=== PATIENT | female | born 1975 | race Caucasian/White ===

== ENCOUNTER → 2019-10-31 | Outpatient (CLI) | payer BC ==
--- NOTE | 2019-11-07 09:19 | Diagnostic Imaging Report ---
INDICATION: Screening. TECHNIQUE: The current study was also evaluated with a Computer Aided Detection (CAD) system. 3D Tomographic imaging was also performed. COMPARISON: 04/13/2018 and 04/07/2017. FINDINGS: There are scattered fibroglandular densities bilaterally. There are a few benign type calcifications. There is no dominant mass, spiculated lesion, or suspicious calcification identified. The skin, nipples, and axillae are unremarkable. IMPRESSION: Benign findings. ACR BI-RADS Category 2: Benign findings. Result letter will be mailed to the patient. Note: At least 10% of breast cancer is not imaged by mammography. Dictated by: Dictated on workstation # [id number]
== END ==
LOC: RAD 07:33
PROVIDERS: ATTEND Nurse Practitioner Family
DX: Z12.31 Encounter for screening mammogram for malignant neoplasm of breast (principal)
CPT/HCPCS: 77067

== ENCOUNTER → 2021-02-03 | Outpatient (CLI) | payer BC ==
--- NOTE | 2021-02-03 08:34 | Diagnostic Imaging Report ---
Indication: Routine screening. Comparison is made prior mammogram 10/31/2019 and 04/13/2018. 2-D and 3-D bilateral screening mammography was performed with CAD. Both breasts are heterogeneously dense, limiting the sensitivity of mammography. Parenchymal pattern is stable. No mass or malignant appearing microcalcifications are seen. Axillae are unremarkable. IMPRESSION: BI-RADS Category 1 No mammographic features suspicious for malignancy are identified. ACR BI-RADS Category 1: Negative. Result letter will be mailed to the patient. Note: At least 10% of breast cancer is not imaged by mammography. Dictated by: Dictated on workstation # [id number]
== END ==
LOC: RAD 07:45
PROVIDERS: ATTEND Nurse Practitioner Family
DX: Z12.31 Encounter for screening mammogram for malignant neoplasm of breast (principal)
CPT/HCPCS: 77063; 77067

== ENCOUNTER → 2022-02-11 | Outpatient (CLI) | payer BC ==
--- NOTE | 2022-02-11 13:03 | Diagnostic Imaging Report ---
INDICATION: Routine screening. COMPARISON: 02/03/2021 and 10/31/2019. TECHNIQUE: 2D and 3D bilateral screening mammography was performed with CAD. FINDINGS: Both breasts are heterogeneously dense, limiting the sensitivity of mammography. The overall parenchymal pattern is stable. No mass or malignant-appearing microcalcifications are seen. The axillae are unremarkable. IMPRESSION: No mammographic features suspicious for malignancy are identified. ACR BI-RADS Category 1: Negative. Result letter will be mailed to the patient. Note: At least 10% of breast cancer is not imaged by mammography. Dictated by: Dictated on workstation # [id number]
== END ==
LOC: RAD 07:20
PROVIDERS: ATTEND Nurse Practitioner Family
DX: Z12.31 Encounter for screening mammogram for malignant neoplasm of breast (principal)
CPT/HCPCS: 77063; 77067

== ENCOUNTER 2022-03-18 07:43 | Emergency (ER) | payer BC ==
[~2022-03-18] VITALS: Ht 177.8 cm; Wt 113.4 kg
--- NOTE | 2022-03-18 08:05 | ED Chest Pain ---
General Stated Complaint: RAPID HR Source: patient Exam Limitations: no limitations History of Present Illness Date Seen by Provider: Mar 18, 2022 Time Seen by Provider: 07:47 Initial Comments The patient and her present to the ER by private conveyance with chief complaint she was awoken this morning about 0430 with pressure and heaviness under her left breast nonradiating causing her to profusely sweat and feel short of breath. She laid down and after about a half an hour it passed. She says her blood pressure was normal 120/80 and her heart rate was 84. She is not a smoker but she does have hypertension, hyperlipidemia on atorvastatin, obesity and has never been tested for obstructive sleep apnea. The pressure lasted a bout 30 minutes and then went away. She says she felt like her heart was racing. No history of SVT, atrial fibrillation or dysrhythmia. No familial history of early onset coronary disease or stroke. She does not have diabetes. Allergies and Home Medications Allergies Coded Allergies: No Known Drug Allergies (Unverified , 03/18/22) Patient Home Medication List Home Medication List Reviewed: Yes Review of Systems Review of Systems Constitutional: No chills EENTM: No Blurred Vision, No Double Vision Respiratory: Denies Cough, Denies Shortness of Air Cardiovascular: See HPI; Denies Chest Pain, Denies Palpitations, Denies Syncope Gastrointestinal: Denies Abdominal Pain, Denies Constipated, Denies Diarrhea; Nausea (Earlier); Denies Vomiting Genitourinary: Denies Burning, Denies Discharge Skin: No pruritus Psychiatric/Neurological: Denies Anxiety, Denies Depressed All Other Systems Reviewed Negative Unless Noted: Yes Past Tlmnmyd-Yemrzk-Dbpeic Hx Patient Social History Tobacco Use?: No Use of E-Cig and/or Vaping dev: No Substance use?: No Alcohol Use?: No Physical Exam Vital Signs Vital Signs - First Documented 03/18/22 07:50 Temp 37.1 Pulse 88 Resp 18 B/P (MAP) 120/76 (91) Pulse Ox 97 O2 Delivery Room Air Capillary Refill : Height, Weight, BMI Height: '" Weight: lbs. oz. kg; BMI Method: General Appearance: No Apparent Distress HEENT: PERRL/EOMI, Pharynx Normal, Moist Mucous Membranes Neck: Full Range of Motion, Normal Inspection Respiratory: Lungs Clear, Normal Breath Sounds, No Accessory Muscle Use, No Respiratory Distress Cardiovascular: Regular Rate, Rhythm, No Edema, Normal Peripheral Pulses Gastrointestinal: Normal Bowel Sounds, Non Tender, Soft Extremity: Normal Inspection, No Pedal Edema Neurologic/Psychiatric: Alert, Oriented x3 Skin: Normal Color, Warm/Dry Progress/Results/Core Measures Results/Orders Lab Results Laboratory Tests Test 03/18/22 07:59 03/18/22 11:15 Range/Units White Blood Count 19.8 H 4.3-11.0 10^3/uL Red Blood Count 4.97 3.80-5.11 10^6/uL Hemoglobin 16.1 H 11.5-16.0 g/dL Hematocrit 46 35-52 % Mean Corpuscular Volume 92 80-99 fL Mean Corpuscular Hemoglobin 32 25-34 pg Mean Corpuscular Hemoglobin Concent 35 32-36 g/dL Red Cell Distribution Width 12.3 10.0-14.5 % Platelet Count 306 130-400 10^3/uL Mean Platelet Volume 10.0 9.0-12.2 fL Immature Granulocyte % (Auto) 1 % Neutrophils (%) (Auto) 87 H 42-75 % Lymphocytes (%) (Auto) 8 L 12-44 % Monocytes (%) (Auto) 4 0-12 % Eosinophils (%) (Auto) 1 0-10 % Basophils (%) (Auto) 0 0-10 % Neutrophils # (Auto) 17.2 H 1.8-7.8 10^3/uL Lymphocytes # (Auto) 1.6 1.0-4.0 10^3/uL Monocytes # (Auto) 0.8 0.0-1.0 10^3/uL Eosinophils # (Auto) 0.2 0.0-0.3 10^3/uL Basophils # (Auto) 0.1 0.0-0.1 10^3/uL Immature Granulocyte # (Auto) 0.1 0.0-0.1 10^3/uL Neutrophils % (Manual) 84 % Lymphocytes % (Manual) 6 % Monocytes % (Manual) 5 % Eosinophils % (Manual) 3 % Band Neutrophils 2 % Blood Morphology Comment NORMAL Prothrombin Time 12.8 12.2-14.7 SEC INR Comment 0.9 0.8-1.4 Activated Partial Thromboplast Time 26 24-35 SEC Sodium Level 138 135-145 MMOL/L Potassium Level 3.4 L 3.6-5.0 MMOL/L Chloride Level 97 L 98-107 MMOL/L Carbon Dioxide Level 27 21-32 MMOL/L Anion Gap 14 5-14 MMOL/L Blood Urea Nitrogen 18 7-18 MG/DL Creatinine 1.03 0.60-1.30 MG/DL Estimat Glomerular Filtration Rate 68 BUN/Creatinine Ratio 17 Glucose Level 125 H 70-105 MG/DL Calcium Level 9.2 8.5-10.1 MG/DL Corrected Calcium 9.0 8.5-10.1 MG/DL Magnesium Level 2.0 1.6-2.4 MG/DL Total Bilirubin 1.9 H 0.1-1.0 MG/DL Aspartate Amino Transf (AST/SGOT) 28 5-34 U/L Alanine Aminotransferase (ALT/SGPT) 30 0-55 U/L Alkaline Phosphatase 60 40-136 U/L Myoglobin 55.6 10.0-92.0 NG/ML Troponin I < 0.028 < 0.028 <0.028 NG/ML B-Type Natriuretic Peptide < 10.0 <100.0 PG/ML Total Protein 7.1 6.4-8.2 GM/DL Albumin 4.3 3.2-4.5 GM/DL Lipase 20 8-78 U/L My Orders Orders - BETO KUMARI Continuous Ekg Monitoring (03/18/22 07:46) Ekg Tracing (03/18/22 07:46) Cbc With Automated Diff (03/18/22 08:00) Magnesium (03/18/22 08:00) Chest 1 View, Ap/Pa Only (03/18/22 08:00) Comprehensive Metabolic Panel (03/18/22 08:00) Myoglobin Serum (03/18/22 08:00) Protime With Inr (03/18/22 08:00) Partial Thromboplastin Time (03/18/22 08:00) O2 (03/18/22 08:00) Lipid Panel (03/19/22 06:00) Ed Iv/Invasive Line Start (03/18/22 08:00) Lipase (03/18/22 08:00) Bnp Melissa (03/18/22 08:00) Troponin I Melissa (03/18/22 08:00) Aspirin Chewable Tablet (Baby Aspirin Ch (03/18/22 08:15) Manual Differential (03/18/22 07:59) Fibrin Degradation Products (03/18/22 11:13) Troponin I [place] (03/18/22 11:13) Medications Given in ED Current Medications Medications Dose Ordered Sig/Qian Route Start Time Stop Time Status Last Admin Dose Admin Aspirin 324 mg ONCE ONCE PO 03/18/22 08:15 03/18/22 08:16 DC 03/18/22 08:13 324 MG Vital Signs/I&O 03/18/22 07:50 Temp 37.1 Pulse 88 Resp 18 B/P (MAP) 120/76 (91) Pulse Ox 97 O2 Delivery Room Air Progress Progress Note #1: Time: 08:19 Progress Note Concerning for dysrhythmia, coronary disease or other chest disease. Blood clot less likely given the limited nature of her symptoms. She is asymptomatic by the time she gets to the ER and does not have any exertional dyspnea. An EKG is unremarkable and her telemetry is not revealing of any dysrhythmia yet. We will get some labs and because of her risk factors of obesity, hypertension, hyperlipidemia, age over 45 would put her in the moderate risk category for Mace with a initial negative troponin. We will discussed the case with cardiology about observation versus ER rule out. Progress Note #2: Time: 11:01 Progress Note Heart score 4 points, moderate risk for Mace. Discussed the case with Dr. Vargas, cardiology and he recommends a rule out troponin at 3 hours after the initial and he would try and rule out a PE as well. He would then have her follow-up in the clinic tomorrow if she is asymptomatic and has 2 negative troponins. Well score 0 points. PERC rule 0 points. Low risk. Initial ECG Impression Date: Mar 18, 2022 Initial ECG Impression Time: 07:51 Initial ECG Rate: 89 Initial ECG Rhythm: Normal Sinus Initial ECG Intervals: Normal Initial ECG Impression: Normal Comment Borderline prolonged QTC. Normal sinus rhythm. No clinically relevant ST changes. Diagnostic Imaging Diagonstic Imaging: Xray Plain Films/CT/US/NM/MRI: chest Comments [facility] [place], [place] NAME: ALETHA JORDAN [facility] REC#: [id number] PT STATUS: REG ER : 1975 PHYSICIAN: BETO KUMARI MD ADMIT DATE: 03/18/22/ER Draft Date of Exam:03/18/22 CHEST 1 VIEW, AP/PA ONLY EXAMINATION: Chest, 1 view. HISTORY: Chest pain. COMPARISON: None available. FINDINGS: The lungs are clear without edema or pneumonia. No pleural effusion or pneumothorax. Heart size is normal. IMPRESSION: Clear lungs. Dictated on workstation # [id number] Dict: 03/18/22 0842 Trans: 03/18/22 [id number] Interpreted by: JL RODRIGUEZ MD Electronically signed by: Reviewed: Reviewed by Me Departure Impression Primary Impression: Chest pain Qualified Codes: R07.9 - Chest pain, unspecified Disposition: HOME, SELF-CARE Condition: Stable Departure-Patient Inst. Decision time for Depature: 12:07 Referrals: AYAH NGUYEN MD (PCP/Family) Primary Care Physician JP VARGAS MD [facility] Patient Instructions: Chest Pain (DC) Add. Discharge Instructions: While we could not detect evidence of a heart attack today Dr. Vargas the chassis engineer and I are still concerned that you may have something going on with your heart that needs further work-up outpatient. Call his clinic and he will get you seen tomorrow morning and appropriately risk stratified. Return to the ER for significant chest pain, shortness of air or other worrisome symptoms. Aspirin 81 mg daily until you see the heart doctor. Work/School Note: Work Release Form Date Seen in the Emergency Department: Mar 18, 2022 Return to Work: Mar 19, 2022 Restrictions: No Restrictions Copy Copies To 1: AYAH NGUYEN MD; JP VARGAS MD [facility] BETO KUMARI Mar 18, 2022 08:05
[2022-03-18] MEDS ORDERED: ASPIRIN 81 MG CHEW (CHILDREN'S ASA) PO ONE (08:15)
[2022-03-18 08:16] LABS: BASOPHILS # (AUTO) 0.1 10^3/uL (0.0-0.1); BASOPHILS % (AUTO) 0 % (0-10); EOSINOPHILS # (AUTO) 0.2 10^3/uL (0.0-0.3); EOSINOPHILS % (AUTO) 1 % (0-10); HEMATOCRIT 46 % (35-52); HEMOGLOBIN 16.1 g/dL (11.5-16.0); LYMPHOCYTES # (AUTO) 1.6 10^3/uL (1.0-4.0); LYMPHOCYTES % (AUTO) 8 % (12-44); MEAN CORPUSCULAR HEMOGLOBIN 32 pg (25-34); MEAN CORPUSCULAR HGB CONC 35 g/dL (32-36); MEAN CORPUSCULAR VOLUME 92 fL (80-99); MONOCYTES # (AUTO) 0.8 10^3/uL (0.0-1.0); MONOCYTES % (AUTO) 4 % (0-12); NEUTROPHILS # (AUTO) 17.2 10^3/uL (1.8-7.8); NEUTROPHILS % (AUTO) 87 % (42-75); PLATELET COUNT 306 10^3/uL (130-400); WHITE BLOOD COUNT 19.8 10^3/uL (4.3-11.0)
[2022-03-18 08:24] LABS: ALBUMIN 4.3 GM/DL (3.2-4.5)
[2022-03-18 08:25] LABS: POTASSIUM 3.4 MMOL/L (3.6-5.0)
[2022-03-18 08:26] LABS: CALCIUM 9.2 MG/DL (8.5-10.1)
[2022-03-18 08:27] LABS: TOTAL PROTEIN 7.1 GM/DL (6.4-8.2)
[2022-03-18 08:29] LABS: BILIRUBIN,TOTAL 1.9 MG/DL (0.1-1.0)
[2022-03-18 08:31] LABS: CREATININE SERUM 1.03 MG/DL (0.60-1.30); INR 0.9 (0.8-1.4); PROTHROMBIN TIME PATIENT 12.8 SEC (12.2-14.7)
--- NOTE | 2022-03-18 08:44 | Diagnostic Imaging Report ---
EXAMINATION: Chest, 1 view. HISTORY: Chest pain. COMPARISON: None available. FINDINGS: The lungs are clear without edema or pneumonia. No pleural effusion or pneumothorax. Heart size is normal. IMPRESSION: Clear lungs. Dictated by: Dictated on workstation # [id number]
[2022-03-18 08:57] LABS: BAND NEUTROPHILS 2 %; EOSINOPHILS % (MANUAL) 3 %; LYMPHOCYTES % (MANUAL) 6 %; MONOCYTES % (MANUAL) 5 %; NEUTROPHILS % (MANUAL) 84 %; RBC MORPH NORMAL
[2022-03-18 12:25] VITALS: BP 136/85
== END 2022-03-18 12:25 | disposition home or self-care (01) ==
LOC: EDUNIT# 07:43 → ER 07:44
DX: R07.9 Chest pain, unspecified (principal); E78.5 Hyperlipidemia, unspecified; E66.9 Obesity, unspecified
CPT/HCPCS: 36415; 71045; 80053; 83690; 83735; 83874; 83880; 84484; 85007; 85027; 85379; 85610; 85730; 93005

== ENCOUNTER → 2022-03-24 | Outpatient (CLI) | payer BC | LOC: CARD 09:00 | PROVIDERS: ATTEND Internal Medicine Cardiovascular Disease | DX: R07.89 Other chest pain (principal); R00.2 Palpitations | CPT/HCPCS: 93225; 93226; 93306 ==

== ENCOUNTER 2022-04-01 14:32 | Outpatient (CLI) | payer BC | END 2022-04-01 14:45 | LOC: SLEEP 14:32 | PROVIDERS: ATTEND Nurse Practitioner Family | DX: G47.9 Sleep disorder, unspecified (principal); I10 Essential (primary) hypertension; G47.00 Insomnia, unspecified | CPT/HCPCS: G0399 ==

== ENCOUNTER → 2022-04-07 | Outpatient (CLI) | payer BC ==
[2022-04-07 14:05] VITALS: BP 136/98
== END ==
LOC: CARD 14:00
PROVIDERS: ATTEND Internal Medicine Cardiovascular Disease
DX: R07.89 Other chest pain (principal)

== ENCOUNTER → 2023-03-15 | Outpatient (CLI) | payer BC ==
--- NOTE | 2023-03-15 10:14 | Diagnostic Imaging Report ---
INDICATION: Routine screening. COMPARISON: 02/11/2022 and 02/03/2021. TECHNIQUE: 2D and 3D bilateral screening mammography was performed with CAD. FINDINGS: Both breasts are heterogeneously dense, limiting the sensitivity of mammography. The parenchymal pattern is stable. No mass or malignant-appearing microcalcifications are seen. The axillae are unremarkable. IMPRESSION: No mammographic features suspicious for malignancy are identified. ACR BI-RADS Category 1: Negative. Result letter will be mailed to the patient. Note: At least 10% of breast cancer is not imaged by mammography. Dictated by: Dictated on workstation # [id number]
== END ==
LOC: RAD 08:00
PROVIDERS: ATTEND Nurse Practitioner Family
DX: Z12.31 Encounter for screening mammogram for malignant neoplasm of breast (principal)
CPT/HCPCS: 77063; 77067